=== PATIENT | female | born 1965 | race Caucasian/White ===

== ENCOUNTER → 2018-08-15 | Outpatient (CLI) | payer BC, OTHER | END | disposition home or self-care (01) | LOC: CFH 07:26 | PROVIDERS: ATTEND Family Medicine | DX: Z12.31 Encounter for screening mammogram for malignant neoplasm of breast (principal) | CPT/HCPCS: 77063; 77067 ==

== ENCOUNTER 2018-10-12 10:41 | Observation (INO) | payer BC, OTHER ==
[~2018-10-12] VITALS: Ht 162.6 cm; Wt 109.4 kg
[2018-10-12] MEDS ORDERED: SODIUM CHLORIDE FLUSH 10ML SYR IVF ONE (11:00)
[2018-10-12 11:03] LABS: BASOPHILS # (AUTO) 0.02 x10^3/uL (0-0.1); BASOPHILS % (AUTO) 0 % (0-1); EOSINOPHILS # (AUTO) 0.11 x10^3/uL (0-0.4); EOSINOPHILS % (AUTO) 1 % (1-7); LYMPHOCYTES # (AUTO) 1.49 x10^3/uL (1-3.4); LYMPHOCYTES % (AUTO) 17 % (22-44); MD NO; MEAN CORPUSCULAR HEMOGLOBIN 31.8 pg (27.0-34.8); MEAN CORPUSCULAR HGB CONC 34.4 g/dL (32.4-35.8); MEAN CORPUSCULAR VOLUME 92.4 fL (80-100); MEAN PLATELET VOLUME 7.8 fL (7.4-10.4); MONOCYTES # (AUTO) 0.55 x10^3/uL (0.2-0.8); MONOCYTES % (AUTO) 6 % (2-9); NEUTROPHILS # (AUTO) 6.66 x10^3/uL (1.8-6.8); NEUTROPHILS % (AUTO) 75 % (42-75); PLATELET COUNT 294 x10^3/uL (130-400); RED BLOOD COUNT 4.61 x10^6/uL (3.82-5.3); RED CELL DISTRIBUTION WIDTH 14.3 % (9.6-15.2)
--- NOTE | 2018-10-12 11:03 | NUR ---
BIB EMS FOR CHEST PAIN STARTING YESTERDAY. STATES WOKE HER UP FROM SLEEP. DESCRIBED PRESSURE, NON RADIATING, 11/07. PT SEEN AT AND REFFERRED TO ED. GIVEN ASA AND BY EMS, EMS GAVE 0.4 NITRO. CHEST PAIN NOW AT /10. PT DENIES SOB, N/V, OR DIZZINESS. RESTING ON GURNEY, CALL LIGHT IN REACH. SIDERAILS UP X 2, CP MONITORS IN PLACE.
[2018-10-12 11:14] LABS: INTERNATIONAL NORMALIZED RATIO 0.93 (0.93-1.1); PROTHROMBIN TIME 9.8 Seconds (9.6-11.5)
[2018-10-12 11:15] LABS: ALBUMIN 3.8 g/dL (3.4-5.0); ANION GAP 5 mmol/L (5-15); CALCIUM 10.1 mg/dL (8.5-10.1); CHLORIDE 108 mmol/L (98-107)
[2018-10-12 11:18] LABS: TROPONIN I < 0.015 ng/mL (0.000-0.045)
[2018-10-12] MEDS: NITROGLYCERIN SINGLE TAB 0.4 MG SL PRN ×3 (11:36→20:44)
[2018-10-12] MEDS ORDERED: LISI-170 PO (12:16)
[2018-10-12] MEDS ORDERED: ATEN50TA41 PO (12:16)
[2018-10-12] MEDS ORDERED: SODIUM CHLORIDE FLUSH 10ML SYR IVF PRN (12:30)
[2018-10-12] MEDS ORDERED: NITROGLYCERIN 0.4 MG BOTTLE (25 TABS) SL PRN (13:00)
[2018-10-12] MEDS ORDERED: LIDODERM 5% PATCH TD PRN (13:00)
[2018-10-12] MEDS ORDERED: ACETAMINOPHEN 325 MG TABLET PO PRN (13:00)
[2018-10-12] MEDS ORDERED: NITROGLYCERIN 0.4 MG/SPRAY SL PRN (13:00)
[2018-10-12] MEDS ORDERED: hydrALAzine 20 MG/ML, 1ML IVPush PRN (13:00)
--- NOTE | 2018-10-12 13:20 | NUR ---
TASK RN: Attempted to call report to floor RN. Waited on hold for 3 minutes. Will call back later to provide report.
--- NOTE | 2018-10-12 13:27 | NUR ---
TASK RN: Provided report to NASRA Finn. Answered all questions. Pt ready to transfer to floor from ED.
[2018-10-12 13:53] VITALS: BP 128/86
[2018-10-12 13:53] LABS: FREE T4 (FREE THYROXINE) 0.94 ng/dL (0.76-1.46)
[2018-10-12] MEDS ORDERED: VIT1CAPS51 PO (14:25)
[2018-10-12] MEDS ORDERED: MULT-658 PO (14:25)
[2018-10-12] MEDS ORDERED: LANS15TA8 PO (14:25)
[2018-10-12] MEDS ORDERED: LEVO112T4 PO (14:25)
[2018-10-12] MEDS ORDERED: GLUC-149 PO (14:25)
[2018-10-12 14:55] LABS: MICROSCOPIC NOT IND
[2018-10-12] MEDS: NS + 20MEQ KCL 1,000 ML IV SCH (15:01)
[2018-10-12] MEDS: ENOXAPARIN 40 MG/0.4 ML SQ SCH (15:01)
[2018-10-12 17:20] LABS: TROPONIN I < 0.015 ng/mL (0.000-0.045)
[2018-10-12 19:29] VITALS: BP 136/81
[2018-10-12 23:06] LABS: TROPONIN I < 0.015 ng/mL (0.000-0.045)
[2018-10-13] MEDS: NS + 20MEQ KCL 1,000 ML IV SCH (00:36)
[2018-10-13 00:56] VITALS: BP 108/71
[2018-10-13] MEDS ORDERED: LEVOTHYROXINE 137 MCG TABLET PO SCH (06:00)
[2018-10-13] MEDS ORDERED: ATENOLOL 50 MG TABLET PO SCH ×2 (06:00→09:00)
[2018-10-13 06:04] LABS: BASOPHILS # (AUTO) 0.03 x10^3/uL (0-0.1); BASOPHILS % (AUTO) 1 % (0-1); EOSINOPHILS # (AUTO) 0.11 x10^3/uL (0-0.4); EOSINOPHILS % (AUTO) 1 % (1-7); LYMPHOCYTES # (AUTO) 1.43 x10^3/uL (1-3.4); LYMPHOCYTES % (AUTO) 19 % (22-44); MD NO; MEAN CORPUSCULAR HEMOGLOBIN 31.4 pg (27.0-34.8); MEAN CORPUSCULAR HGB CONC 33.9 g/dL (32.4-35.8); MEAN CORPUSCULAR VOLUME 92.6 fL (80-100); MEAN PLATELET VOLUME 7.7 fL (7.4-10.4); MONOCYTES # (AUTO) 0.55 x10^3/uL (0.2-0.8); MONOCYTES % (AUTO) 7 % (2-9); NEUTROPHILS # (AUTO) 5.44 x10^3/uL (1.8-6.8); NEUTROPHILS % (AUTO) 72 % (42-75); PLATELET COUNT 247 x10^3/uL (130-400); RED BLOOD COUNT 4.31 x10^6/uL (3.82-5.3); RED CELL DISTRIBUTION WIDTH 14.4 % (9.6-15.2)
[2018-10-13 06:17] LABS: ANION GAP 6 mmol/L (5-15); CALCIUM 9.1 mg/dL (8.5-10.1); CHLORIDE 110 mmol/L (98-107)
[2018-10-13 06:24] LABS: CHOL/HDL RATIO 3.5; CHOLESTEROL, TOTAL 203 mg/dL (140-239); CREATININE 0.95 mg/dL (0.55-1.02); HDL CHOL % 29 % (28-40); HDL CHOLESTEROL (DIRECT) 58 mg/dL (40-60); LDL CHOLESTEROL,CALCULATED 116 mg/dL (54-169); TRIGLYCERIDES 144 mg/dL (50-200); VLDL CHOLESTEROL 29 mg/dL (0-25)
[2018-10-13 07:11] LABS: HEMOGLOBIN A1C 5.7 % (4.2-6.3)
[2018-10-13 07:25] VITALS: BP 124/85
[2018-10-13] MEDS ORDERED: PANTOPROZOLE 40MG TABLET PO SCH (07:30)
[2018-10-13] MEDS ORDERED: MULTIVITAMIN 1 TABLET PO SCH (09:00)
[2018-10-13] MEDS ORDERED: MULTIVITS,STRESS FORMULA 1 TABLET PO SCH (09:00)
[2018-10-13] MEDS ORDERED: REGADENOSON 0.4 MG/5 ML SYRINGE ONE (09:26)
[2018-10-13] MEDS ORDERED: ACETAMINOPHEN 325 MG TABLET PO PRN (09:30)
[2018-10-13] MEDS ORDERED: ACID1TAB7 PO (11:16)
[2018-10-13] MEDS ORDERED: ATEN50TA41 PO (11:16)
[2018-10-13] MEDS ORDERED: NS + 20MEQ KCL 1,000 ML IV SCH (12:50)
[2018-10-13] MEDS: ENOXAPARIN 40 MG/0.4 ML SQ SCH (14:10)
[2018-10-13 15:02] VITALS: BP 105/77
[2018-10-13] MEDS ORDERED: LACTOBACILLUS CHEW TABLET PO SCH (16:00)
== END 2018-10-13 17:28 | disposition home or self-care (01) ==
LOC: ED 12:00 → INTOOBSV 12:01 → EDIP 12:01 → ED 12:14 → 5SO 13:46
PROVIDERS: ADMIT Hospitalist; ATTEND Hospitalist
DX: R07.89 Other chest pain (principal); E66.01 Morbid (severe) obesity due to excess calories; I10 Essential (primary) hypertension; N17.9 Acute kidney failure, unspecified; E89.0 Postprocedural hypothyroidism; K21.9 Gastro-esophageal reflux disease without esophagitis; Z79.899 Other long term (current) drug therapy; Z85.850 Personal history of malignant neoplasm of thyroid; Z82.49 Family history of ischemic heart disease and other diseases of the circulatory system; Z88.9 Allergy status to unspecified drugs, medicaments and biological substances
CPT/HCPCS: 36415; 71045; 78452; 80048; 80061; 81003; 82040; 83036; 83880; 84439; 84443; 84484; 85025; 85610; 85730; 93005; 93017; 93306; 96372; 99284; A9502; C9898; G0378; J1650; J2785; J3480